=== PATIENT | female | born 1930 | race African-American/Black ===

== ENCOUNTER → 2016-07-09 | Outpatient (CLI) | payer OTHER ==
--- NOTE | ~2016-07-09 | CR184 ---
[facility] A Service of [facility] & [facility] RADIOLOGY TEXT RESULTS PATIENT: MILLY MCRAE LOCATION: [facility] : 32 UNIT #: [id number] AGE: [address]: Briana Harmon MD SEX: F ORDER DR: [id number] [facility] [address] [place], [place] [address] [id number] O MR#: [id number] Acc #: [id number] NAME: MILLY MCRAE : 1930 SEX: F STUDY DATE/TIME: 07/09/2016 13:02 UNIT: [facility] ROOM: STUDY DESCRIPTION: CR Lumbar Spine Min 4 Views Attending Physician: Briana Harmon M.D. Referring Physician: Briana Harmon M.D. Ordering Physician: Briana Harmon M.D. Primary Care Physician: Briana Harmon M.D. MEDICAL IMAGING REPORT This report is preliminary unless electronic signature is present EXAM Lumbar spine series 07/09/2016 HISTORY 86-year-old female complaining of 1-year history of left side back pain. She notes a significant fall injury in 2011. TECHNIQUE Three-view lumbar spine series with additional lateral images in flexion and extension. FINDINGS No acute or chronic fracture deformity, or additional osseous lesion. Moderately severe multilevel degenerative disc space changes throughout the lumbar spine, greatest at L5-S1. Severe lower lumbar degenerative facet arthropathy. Lumbar vertebral alignment is normal and is maintained in flexion and extension. Thoracolumbar spinal curvature. IMPRESSION 1. No acute osseous abnormality. 2. 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 3. Advanced lower lumbar degenerative facet arthropathy. 4. Normal lumbar vertebral alignment in flexion and extension. Dictated by... Sherman Harkins M.D. [facility] A Service [facility] & [facility] RADIOLOGY TEXT RESULTS PATIENT: MILLY MCRAE LOCATION: [facility] : 32 UNIT #: [id number] AGE: [address]: Briana Harmon MD SEX: F ORDER DR: THIS IS AN ELECTRONICALLY VERIFIED REPORT Sherman Harkins M.D. at 07/11/2016 6:00 AM [place] TD: 07/09/2016 16:17 JOB #: [id number] MEDICAL IMAGING REPORT Page 1 of 1 COPY
== END | disposition home or self-care (01) ==
LOC: CRAD 12:13
DX: J30.9 Allergic rhinitis, unspecified (principal); M51.36 Other intervertebral disc degeneration, lumbar region; M51.37 Other intervertebral disc degeneration, lumbosacral region; M46.96 Unspecified inflammatory spondylopathy, lumbar region
CPT/HCPCS: 72110

== ENCOUNTER → 2016-10-06 | Outpatient (CLI) | payer OTHER ==
--- NOTE | ~2016-10-06 | CT2 ---
[facility] A Service of [facility] & [facility] / [facility] RADIOLOGY TEXT RESULTS PATIENT: MILLY MCRAE LOCATION: [facility] : 34 UNIT #: [id number] AGE: [address]: Briana Harmon MD SEX: F ORDER DR: [id number] [facility] [address] [place] [address] [place], [place] [address] [id number] O MR#: [id number] Acc #: [id number] NAME: MILLY MCRAE : 1930 SEX: F STUDY DATE/TIME: 10/06/2016 10:32 [facility] ROOM: STUDY DESCRIPTION: CT Abd and Pelv W Cont Attending Physician: Briana Harmon M.D. Referring Physician: Briana Harmon M.D. Ordering Physician: Briana Harmon M.D. Primary Care Physician: Briana Harmon M.D. MEDICAL IMAGING REPORT This report is preliminary unless electronic signature is present EXAM CT abdomen and pelvis with contrast INDICATION Generalized abdominal pain for [address] of the abdomen and pelvis performed following administration of oral and IV contrast. Coronal and sagittal reformatted images were obtained. This CT exam was performed with one or more of the following radiation dose reduction techniques: automatic exposure control, adjustment of mA and/or kV according to patient size, and iterative reconstruction. COMPARISON Comparison is made with 09/30/2012. FINDINGS Stable mild scarring in the lung bases. A stable benign tiny nodule in the lingula dating back to scans from 2006. The liver, gallbladder and spleen are unremarkable. Kidneys, adrenal glands, and pancreas are unremarkable. Large duodenal diverticulum again noted. Stable ventral abdominal wall hernia containing a portion of transverse colon but no evidence for obstruction. PELVIS: Sigmoid diverticulosis but no evidence for diverticulitis. Large amount of stool in the colon may indicate constipation. There is no free fluid. Bone windows show degenerative changes of the lower lumbar spine. IMPRESSION 1. Stable ventral abdominal wall hernia. 2. Large amount of stool in the colon may indicate constipation. 3. Sigmoid diverticulosis without evidence for diverticulitis. STS. [facility] A Service of [facility] & [facility] / [facility] RADIOLOGY TEXT RESULTS PATIENT: MILLY MCRAE LOCATION: [facility] : 32 UNIT #: [id number] AGE: [address]: Briana Harmon MD SEX: F ORDER DR: Dictated by... Scott Levine M.D. THIS IS AN ELECTRONICALLY VERIFIED REPORT Scott Levine M.D. at 10/07/2016 7:23 AM Olivia TD: 10/06/2016 15:11 JOB #: [id number] MEDICAL IMAGING REPORT Page 1 of 1 COPY
[2016-10-06 14:51] LABS: POC - CREATININE 1.07 mg/dL (0.44-1.03); POC - GFR >60.0 mL/min (>60)
== END | disposition home or self-care (01) ==
LOC: CCAT 09:06
PROVIDERS: Internal Medicine
DX: R10.9 Unspecified abdominal pain (principal); K43.9 Ventral hernia without obstruction or gangrene; K57.30 Diverticulosis of large intestine without perforation or abscess without bleeding
CPT/HCPCS: 74177; 82565; Q9967